=== PATIENT | male | born 2000 | race Caucasian/White ===

== ENCOUNTER 2018-06-02 11:52 | Inpatient (IN) | payer MEDICAID ==
[~2018-06-02 11:52] MED LIST: ACETAMINOPHEN 1000 MG/100 ML IVPB
[2018-06-02] MEDS: SOD CHLORIDE 0.9% 1,000 ML IV (14:25)
[2018-06-02] MEDS: ONDANSETRON 4 MG INJ IV (14:25)
[2018-06-02] MEDS: CEFTRIAXONE 1 GM/50 ML (PMX) 50 ML IVPB (14:25)
[2018-06-02] MEDS: HYDROmorphONE 1 MG/ML SYG IV (14:26)
[2018-06-02 14:28] LABS: ADD MAN DIFF? NO
[2018-06-02 14:29] LABS: WHITE BLOOD COUNT 12.5 10^3/ul (4.8-10.8)
[2018-06-02 14:29] LABS: BASOPHILS % 0.3 % (0.0-2.0); EOSINOPHILS % 0.2 % (0.0-7.0); HEMATOCRIT 43.5 % (42.0-52.0); LYMPHOCYTES # 1.1 10^3/ul (0.8-2.9); LYMPHOCYTES % 8.6 % (18.0-55.0); MEAN CORPUSCULAR HEMOGLOBIN 26.6 pg (29.0-33.0); MEAN CORPUSCULAR HGB CONC 32.2 g/dl (32.0-37.0); MEAN CORPUSCULAR VOLUME 82.5 fl (72.0-104.0); MEAN PLATELET VOLUME 10.6 fl (7.4-10.4); MONOCYTE # 0.7 10^3/ul (0.3-0.9); MONOCYTES % 5.6 % (0.0-13.0); NEUTROPHIL # 10.6 10^3/ul (1.6-7.5); NEUTROPHILS % 84.9 % (30.0-74.0); PLATELET COUNT 296 10^3/UL (140-415); RED BLOOD COUNT 5.27 10^6/ul (4.70-6.10); RED CELL DISTRIBUTION WIDTH 13.2 % (11.5-14.5)
[2018-06-02 14:48] LABS: INR 0.99; PROTIME 13.2 Sec (11.9-14.9)
[2018-06-02 14:49] LABS: PARTIAL THROMBOPLASTIN TIME 28.2 Sec (23.0-35.0)
[2018-06-02 14:55] LABS: ALANINE AMINOTRANSFERASE 408 IU/L (13-69); ALBUMIN 4.6 g/dl (3.3-4.9); ALBUMIN/GLOBULIN RATIO 1.17; ALKALINE PHOSPHATASE 75 IU/L (42-121); ANION GAP 10 (5-13); ASPARTATE AMINO TRANSFERASE 158 IU/L (15-46); BILIRUBIN,INDIRECT 0.3 mg/dl (0-1.1); BILIRUBIN,TOTAL 0.3 mg/dl (0.2-1.3); BLOOD UREA NITROGEN 10 mg/dl (7-20); CALCIUM 9.7 mg/dl (8.4-10.2); CARBON DIOXIDE 26 mmol/L (21-31); CHLORIDE 105 mmol/L (97-110); CREATININE 0.91 mg/dl (0.61-1.24); Estimated GFR > 60 mL/min (>60); GLUCOSE 99 mg/dl (70-220); POTASSIUM 4.1 mmol/L (3.5-5.1); SODIUM 141 mmol/L (135-144); TOTAL PROTEIN 8.5 g/dl (6.1-8.1)
[2018-06-02] MEDS: VANCOMYCIN 1 GM (PMX) 250 ML IVPB (15:10)
[2018-06-02] MEDS: DIPHTH/TET/ACEL PERTUSS (ADULT) 0.5 ML VIAL IM* (15:11)
[2018-06-02] MEDS ORDERED: ACETAMINOPHEN 325 MG TAB PO (15:30)
[2018-06-02] MEDS ORDERED: ONDANSETRON 4 MG INJ IV ×2 (15:30→18:30)
[2018-06-02] MEDS ORDERED: NACL 0.9% 3 ML SYG IV (16:30)
[2018-06-02] MEDS: morphine 2 MG INJ IV (16:39)
[2018-06-02] MEDS ORDERED: BUPIVACAINE 0.25% (MPF) 30 ML INJ (17:25)
[2018-06-02] MEDS ORDERED: LIDOCAINE 100 MG SYRINGE (17:26)
[2018-06-02] MEDS ORDERED: FENTAnyl 50 MCG/ML VIAL ×2 (17:26→17:42)
[2018-06-02] MEDS ORDERED: SUCCINYLCHOLINE CHLORIDE 100 MG/5 ML SYG IV (17:26)
[2018-06-02] MEDS ORDERED: PROPOFOL 200 ML (17:26)
[2018-06-02] MEDS ORDERED: ONDANSETRON 4 MG INJ (17:27)
[2018-06-02] MEDS ORDERED: DEXAMETHASONE 4 MG/ML 1 ML INJ (17:27)
[2018-06-02] MEDS ORDERED: MIDAZOLAM 1 MG/ML 2 ML INJ (17:27)
[2018-06-02] MEDS: POLYMYXIN/BACITRACIN 1L IRRIG IRR (17:27)
[2018-06-02] MEDS ORDERED: MEPERIDINE 25 MG INJ IV (18:30)
[2018-06-02] MEDS ORDERED: FENTAnyl 50 MCG/ML VIAL IV ×2 (18:30)
[2018-06-02] MEDS ORDERED: hydrALAzine 20 MG INJ IV (18:30)
[2018-06-02] MEDS ORDERED: HYDROmorphONE 1 MG/5 ML IV SYRINGE IV ×2 (18:30)
[2018-06-02] MEDS ORDERED: ALBUTEROL 0.083% (NEB) 2.5 MG/3 ML AMP HHN (18:30)
[2018-06-02] MEDS ORDERED: LABETALOL HCL 20MG INJ IV (18:30)
[2018-06-02] MEDS ORDERED: NEOMYC/POLYMYX/BACIT 30 GM OINT (19:15)
[2018-06-02] MEDS ORDERED: HYDROCODONE/APAP (5/325) TAB PO (20:00)
[2018-06-02] MEDS ORDERED: VANCOMYCIN IV PER PHARMACY XX (20:30)
[2018-06-02] MEDS: VANCOMYCIN 1.5 GM in SOD CHLORIDE 0.9% 250 ML IVPB (23:56)
[2018-06-03] MEDS: SOD CHLORIDE 0.9% 1,000 ML IV (03:00)
[2018-06-03 05:12] LABS: ADD MAN DIFF? NO
[2018-06-03 05:13] LABS: BASOPHILS % 0.1 % (0.0-2.0); HEMATOCRIT 41.9 % (42.0-52.0); HEMOGLOBIN 13.5 g/dl (14.0-18.0); LYMPHOCYTES # 1.1 10^3/ul (0.8-2.9); LYMPHOCYTES % 7.7 % (18.0-55.0); MEAN CORPUSCULAR HEMOGLOBIN 26.4 pg (29.0-33.0); MEAN CORPUSCULAR HGB CONC 32.2 g/dl (32.0-37.0); MEAN PLATELET VOLUME 10.8 fl (7.4-10.4); MONOCYTE # 0.8 10^3/ul (0.3-0.9); MONOCYTES % 5.8 % (0.0-13.0); NEUTROPHIL # 11.8 10^3/ul (1.6-7.5); NEUTROPHILS % 86.1 % (30.0-74.0); PLATELET COUNT 292 10^3/UL (140-415); RED BLOOD COUNT 5.11 10^6/ul (4.70-6.10); RED CELL DISTRIBUTION WIDTH 13.1 % (11.5-14.5)
[2018-06-03 05:13] LABS: WHITE BLOOD COUNT 13.7 10^3/ul (4.8-10.8)
[2018-06-03 05:34] LABS: ANION GAP 11 (5-13); BLOOD UREA NITROGEN 9 mg/dl (7-20); CALCIUM 9.3 mg/dl (8.4-10.2); CARBON DIOXIDE 26 mmol/L (21-31); CHLORIDE 102 mmol/L (97-110); CREATININE 0.77 mg/dl (0.61-1.24); Estimated GFR > 60 mL/min (>60); GLUCOSE 127 mg/dl (70-220); POTASSIUM 4.4 mmol/L (3.5-5.1); SODIUM 139 mmol/L (135-144)
[2018-06-03 05:50] LABS: HEMOGLOBIN A1C 5.3 % (0-5.9)
[2018-06-03] MEDS: VANCOMYCIN 1.5 GM in SOD CHLORIDE 0.9% 250 ML IVPB ×3 (06:25→23:26)
[2018-06-03] MEDS: CIPROFLOXACIN 500 MG TAB PO ×2 (06:25→18:21)
[2018-06-03] MEDS: morphine 2 MG INJ IV (09:55)
[2018-06-03] MEDS: HYDROCODONE/APAP (5/325) TAB PO (20:48)
[2018-06-03 22:36] LABS: VANCOMYCIN,TROUGH 16.1 ug/ml (10.0-20.0)
[2018-06-04 05:34] LABS: ADD MAN DIFF? NO
[2018-06-04 05:38] LABS: HAAIG REFLEX REFLEX FILED
[2018-06-04 05:39] LABS: BASOPHILS % 0.3 % (0.0-2.0); EOSINOPHILS # 0.1 10^3/ul (0.0-0.5); EOSINOPHILS % 1.1 % (0.0-7.0); HEMATOCRIT 37.5 % (42.0-52.0); HEMOGLOBIN 12.3 g/dl (14.0-18.0); LYMPHOCYTES # 2.7 10^3/ul (0.8-2.9); LYMPHOCYTES % 26.9 % (18.0-55.0); MEAN CORPUSCULAR HEMOGLOBIN 27.5 pg (29.0-33.0); MEAN CORPUSCULAR HGB CONC 32.8 g/dl (32.0-37.0); MEAN CORPUSCULAR VOLUME 83.9 fl (72.0-104.0); MEAN PLATELET VOLUME 10.8 fl (7.4-10.4); MONOCYTE # 0.9 10^3/ul (0.3-0.9); MONOCYTES % 9.3 % (0.0-13.0); NEUTROPHIL # 6.2 10^3/ul (1.6-7.5); PLATELET COUNT 249 10^3/UL (140-415); RED BLOOD COUNT 4.47 10^6/ul (4.70-6.10); RED CELL DISTRIBUTION WIDTH 13.4 % (11.5-14.5)
[2018-06-04 06:03] LABS: ALANINE AMINOTRANSFERASE 242 IU/L (13-69); ALBUMIN 3.6 g/dl (3.3-4.9); ALBUMIN/GLOBULIN RATIO 1.56; ALKALINE PHOSPHATASE 48 IU/L (42-121); ANION GAP 9 (5-13); ASPARTATE AMINO TRANSFERASE 83 IU/L (15-46); BILIRUBIN,INDIRECT 0.4 mg/dl (0-1.1); BILIRUBIN,TOTAL 0.4 mg/dl (0.2-1.3); BLOOD UREA NITROGEN 12 mg/dl (7-20); CALCIUM 8.9 mg/dl (8.4-10.2); CARBON DIOXIDE 28 mmol/L (21-31); CHLORIDE 103 mmol/L (97-110); CREATININE 0.89 mg/dl (0.61-1.24); Estimated GFR > 60 mL/min (>60); GLUCOSE 89 mg/dl (70-220); POTASSIUM 4.1 mmol/L (3.5-5.1); SODIUM 140 mmol/L (135-144); TOTAL PROTEIN 5.9 g/dl (6.1-8.1)
[2018-06-04 06:33] LABS: HEPATITIS B SURFACE ANTIGEN NEGATIVE (NEGATIVE)
[2018-06-04] MEDS: CIPROFLOXACIN 500 MG TAB PO ×2 (06:36→19:33)
[2018-06-04] MEDS: VANCOMYCIN 1.5 GM in SOD CHLORIDE 0.9% 250 ML IVPB (06:38)
[2018-06-04 06:50] LABS: HEPATITIS B CORE ANTIBODY NEGATIVE (NEGATIVE); HEPATITIS C VIRAL ANTIBODY NEGATIVE (NEGATIVE)
[2018-06-04] MEDS: VANCOMYCIN 1 GM 250 ML IVPB ×2 (15:26→22:50)
[2018-06-05 05:26] LABS: ADD MAN DIFF? NO
[2018-06-05 05:28] LABS: BASOPHILS % 0.3 % (0.0-2.0); EOSINOPHILS # 0.2 10^3/ul (0.0-0.5); EOSINOPHILS % 2.3 % (0.0-7.0); HEMATOCRIT 42.1 % (42.0-52.0); HEMOGLOBIN 13.5 g/dl (14.0-18.0); LYMPHOCYTES # 2.3 10^3/ul (0.8-2.9); LYMPHOCYTES % 24.5 % (18.0-55.0); MEAN CORPUSCULAR HEMOGLOBIN 26.4 pg (29.0-33.0); MEAN CORPUSCULAR HGB CONC 32.1 g/dl (32.0-37.0); MEAN CORPUSCULAR VOLUME 82.4 fl (72.0-104.0); MEAN PLATELET VOLUME 10.6 fl (7.4-10.4); MONOCYTE # 0.9 10^3/ul (0.3-0.9); MONOCYTES % 9.7 % (0.0-13.0); NEUTROPHILS % 62.9 % (30.0-74.0); PLATELET COUNT 290 10^3/UL (140-415); RED BLOOD COUNT 5.11 10^6/ul (4.70-6.10)
[2018-06-05 05:28] LABS: WHITE BLOOD COUNT 9.5 10^3/ul (4.8-10.8)
[2018-06-05 06:03] LABS: ALANINE AMINOTRANSFERASE 226 IU/L (13-69); ALBUMIN/GLOBULIN RATIO 1.33; ALKALINE PHOSPHATASE 51 IU/L (42-121); ANION GAP 10 (5-13); ASPARTATE AMINO TRANSFERASE 88 IU/L (15-46); BILIRUBIN,INDIRECT 0.3 mg/dl (0-1.1); BILIRUBIN,TOTAL 0.3 mg/dl (0.2-1.3); BLOOD UREA NITROGEN 14 mg/dl (7-20); CALCIUM 9.3 mg/dl (8.4-10.2); CARBON DIOXIDE 29 mmol/L (21-31); CHLORIDE 102 mmol/L (97-110); CREATININE 0.95 mg/dl (0.61-1.24); Estimated GFR > 60 mL/min (>60); GLUCOSE 94 mg/dl (70-220); POTASSIUM 4.2 mmol/L (3.5-5.1); SODIUM 141 mmol/L (135-144)
[2018-06-05] MEDS: VANCOMYCIN 1 GM 250 ML IVPB ×3 (06:04→23:14)
[2018-06-05] MEDS: CIPROFLOXACIN 500 MG TAB PO ×2 (06:04→16:34)
[2018-06-05] MEDS: DOCUSATE SODIUM 100 MG CAP PO (16:34)
[2018-06-05 22:46] LABS: VANCOMYCIN,TROUGH 12.2 ug/ml (10.0-20.0)
[2018-06-06] MEDS: CIPROFLOXACIN 500 MG TAB PO ×2 (06:08→17:43)
[2018-06-06] MEDS: VANCOMYCIN 1 GM 250 ML IVPB ×3 (06:10→22:21)
[2018-06-06] MEDS: DOCUSATE SODIUM 100 MG CAP PO (08:59)
[2018-06-07 05:43] LABS: BLOOD UREA NITROGEN 14 mg/dl (7-20)
[2018-06-07 05:43] LABS: CREATININE 0.91 mg/dl (0.61-1.24)
[2018-06-07] MEDS: CIPROFLOXACIN 500 MG TAB PO ×2 (06:17→18:07)
[2018-06-07] MEDS: VANCOMYCIN 1 GM 250 ML IVPB ×3 (06:18→22:00)
[2018-06-07] MEDS: DOCUSATE SODIUM 100 MG CAP PO (09:33)
[2018-06-08] MEDS: CIPROFLOXACIN 500 MG TAB PO (06:31)
[2018-06-08] MEDS: VANCOMYCIN 1 GM 250 ML IVPB (06:31)
[2018-06-08] MEDS: DOCUSATE SODIUM 100 MG CAP PO (09:28)
== END 2018-06-08 15:45 | disposition home or self-care (01) | DRG 718 ==
LOC: MS1 06-07 16:04 → E/R 11:52 → SDS 17:06 → MS1 20:57 → SDS 21:39 → MS1 17:07
PROC: 0JBB0ZZ Excision of Perineum Subcutaneous Tissue and Fascia, Open Approach (ICD-10-PCS; principal; 2018-06-02 17:27)
PROC: 0VQ50ZZ Repair Scrotum, Open Approach (ICD-10-PCS; 2018-06-02 17:27)
DX: S31.31XA Laceration without foreign body of scrotum and testes, initial encounter (principal); W13.2XXA Fall from, out of or through roof, initial encounter; E66.9 Obesity, unspecified; F17.200 Nicotine dependence, unspecified, uncomplicated; K76.0 Fatty (change of) liver, not elsewhere classified; Z68.54 Body mass index [BMI] pediatric, 95th percentile for age to less than 120% of the 95th percentile for age
CPT/HCPCS: 36415; 76705; 76870; 80048; 80053; 80202; 82565; 83036; 84520; 85025; 85610; 85730; 86704; 86709; 86803; 87340; 88304; 90471; 90686; 90715; 96374; 96375; 99285-25